=== PATIENT | male | born 1995 | race Two or more races ===

== ENCOUNTER 2017-10-01 21:04 | Emergency (ER) | payer OTHER ==
[2017-10-01 21:08] VITALS: BP 125/80; PULSE 84; RESP 16; TEMP 97.5; O2SAT 97
--- NOTE | 2017-10-01 21:15 | EDPHY ---
H & P Stated Complaint: L clavicle injury - Personal History Current Tetanus/Diphtheria Vaccine: Yes Current Tetanus Diphtheria and Acellular Pertussis (TDAP): Yes - Medical/Surgical History Hx Asthma: No Hx Chronic Respiratory Disease: No Hx Diabetes: No Hx Cardiac Disease: No Hx Renal Disease: No Hx Cirrhosis: No Hx Alcoholism: No Hx HIV/AIDS: No Hx Splenectomy or Spleen Trauma: No Other PMH: Anxiety - Social History Smoking Status: Current every day smoker Time Seen by Provider: 10/01/17 21:10 HPI/ROS: CHIEF COMPLAINT: Left clavicle injury HISTORY OF PRESENT ILLNESS: 22-year-old male generally healthy complaining of acute left clavicle pain after he was snowboarding today at [facility], fell impacting this area. He was able to drive back as a passenger. Denies paresthesia. Denies break in skin. Denies head injury. Denies chest pain or trauma. Denies back pain or trauma. Denies dyspnea. REVIEW OF SYSTEMS: A ten point review of systems was performed and is negative with the exception of the items mentioned in the HPI PAST MEDICAL/SURGICAL HISTORY: no anticoagulant use, no relevant medical/ surgical history SOCIAL HISTORY: denies alcohol use at time of incident PHYSICAL EXAM 1) GENERAL: Well-developed, well-nourished, alert and oriented. Appears uncomfortable. Answering questions appropriately. 2) HEAD: Normocephalic, atraumatic 3) HEENT: Pupils equal, round, reactive to light bilaterally.. 4) NECK: No cervical collar is on. Posterior cervical spine is nontender, no stepoff, no effusion. Full range of motion which does not elicit any midline cervical spine pain, no posterior midline tenderness, no step-off. 5) LUNGS: Clear to auscultation bilaterally, no wheezes, no rhonchi, no retractions. No obvious signs of trauma. No chest wall pain. No flaring, no grunting. Moving symmetrically. No crepitus. 6) HEART: [Regular rate and rhythm, 7) ABDOMEN: No guarding, no rebound, no focal tenderness, no peritoneal signs, no signs of trauma, no ecchymosis 8) MUSCULOSKELETAL: Left upper extremity: Tender to palpation mid clavicle with noted deformity, tenderness, no tenting, no puncture wound. left upper extremity radial ulnar median nerve function intact. 9 ) BACK: No midline vertebral tenderness, no fluctuance, no step-off, no obvious trauma, no visual or palpable abnormality. 10) SKIN: No laceration. No abrasion DIFFERENTIAL DIAGNOSIS: In no particular order including but not limited to closed clavicle fracture, open clavicle fracture, sprain, strain (Warren Harper ) Constitutional: Initial Vital Signs Temperature (C) 36.4 C 10/01/17 21:06 Heart Rate 84 10/01/17 21:06 Respiratory Rate 16 10/01/17 21:06 Blood Pressure 125/80 H 10/01/17 21:06 O2 Sat (%) 97 10/01/17 21:06 O2 Delivery Mode Room Air Allergies/Adverse Reactions: No Known Allergies Allergy (Unverified 10/01/17 21:08) Home Medications: Medication Instructions Recorded Hydrocodone/APAP 5/325 [[place] 1 tab PO Q6 PRN #7 tab 10/01/17 5/325 (RX)] Medical Decision Making - Diagnostics Imaging Results: Imaging Impressions Clavicle X-Ray 10/01/17 21:04 Impression: 1. Comminuted displaced midshaft left clavicle fracture. Images reviewed by myself (Warren Harper) Procedures: Procedure: Splint A left upper extremity sling was applied by ER industrial cleaning technician. After application of the splint I returned and re-examined the patient. The splint was adequately immobilizing the joint and distal to the splint the patient's circulation and sensation were intact. Patient shows no signs of compartment syndrome. Was given orthopedic precautions. (Warren Harper) ED Course/Re-evaluation: Patient was re-evaluated with serial examinations. I reviewed his imaging results with him. He has been splinted. Recommend follow up with Orthopedics. He has been given analgesia prescription. He is neurovascular intact. No other injuries. He feels comfortable with this plan. All questions and concerns addressed by myself. Care of patient under supervision of secondary supervising physician Dr Heather Adkins . (Warren Harper) The patient was evaluated and managed by the physician's medical technician assistant. My cosignature indicates that I reviewed the chart and I agree with the findings and plan of care as documented. I am the secondary supervising physician. ( Heather Adkins) - Data Points Medications Given: Discontinued Medications Oxycodone/Acetaminophen (Percocet 5/325) 1 tab PO EDNOW ONE Stop: 10/01/17 21:24 Last Admin: 10/01/17 21:25 Dose: 1 tab Departure - Departure Disposition: Home, Routine, Self-Care Clinical Impression: Fracture of left clavicle Qualifiers: Encounter type: initial encounter Clavicle location: shaft Fracture type: closed Fracture alignment: displaced Qualified Code(s): S42.022A - Displaced fracture of shaft of left clavicle, initial encounter for closed fracture Condition: Good Instructions: Hydrocodone/Acetaminophen (By mouth), Clavicle Fracture (ED) Additional Instructions: Return to the ER immediately if you experience discoloration, have worsening pain, numbness, tingling, or any other symptoms that concern you. If you received x-rays in the emergency department today, be advised, that ligamentous , tendon, muscular, and other non-bony injury cannot be fully ruled out. Try to keep your affected extremity elevated above the level of your chest, and keep cold packs on the affected area, for the next 48 hours. Referrals: Marcelino Miller MD [Medical Doctor] - 2-3 days, call for appt. Prescriptions: Hydrocodone/APAP 5/325 [[place] 5/325 (RX)] 1 tab PO Q6 PRN #7 tab PRN Reason: Pain, Severe
[2017-10-01] MEDS ORDERED: OXYCODONE/APAP 5/325 TAB PO ONE (21:23)
== END 2017-10-01 21:49 | disposition home or self-care (01) ==
DX: S42.022A Displaced fracture of shaft of left clavicle, initial encounter for closed fracture (principal); F17.200 Nicotine dependence, unspecified, uncomplicated; V00.311A Fall from snowboard, initial encounter; Y92.89 Other specified places as the place of occurrence of the external cause; Y93.23 Activity, snow (alpine) (downhill) skiing, snowboarding, sledding, tobogganing and snow tubing
CPT/HCPCS: A4565